=== PATIENT | male | born 1945 | race Caucasian/White ===

== ENCOUNTER → 2017-08-12 | Outpatient (CLI) | payer MEDICARE, OTHER ==
[~2017-08-12] MED LIST: ALLEGRA60 MG PO; ANTIVERT PO; ASPI81EC86 PO; LIPITOR PO; PROTONIX20 MG PO; nasal spray
== END ==
LOC: COL.RAD 10:00
DX: I72.3 Aneurysm of iliac artery (principal); I71.4 Abdominal aortic aneurysm, without rupture

== ENCOUNTER → 2018-09-23 | Outpatient (CLI) | payer MEDICARE, OTHER | LOC: COL.CARD 13:23 | DX: R55 Syncope and collapse (principal) ==

== ENCOUNTER 2018-12-02 08:02 | Outpatient (CLI) | payer MEDICARE, OTHER ==
[~2018-12-02] VITALS: Ht 175.4 cm; Wt 72.0 kg
[~2018-12-02 08:02] MED LIST changes: -ASPI81EC86 PO; +ASPIRIN E.C. 8181 MG PO; +LIPITOR 10MG10 MG PO; -LIPITOR PO; +SINGULAIR 110 MG/TAB PO; +TAMBOCOR50 MG PO
[2018-12-02 08:28] LABS: HEMATOCRIT 47.1 % (42.0-52.0); HEMOGLOBIN 15.9 g/dl (13.5-18.0); MEAN CELL VOLUME 100 fl (80.0-100.0); MEAN CORPUSCULAR HEMOGLOBIN 34 pg (27.0-31.0); MEAN CORPUSCULAR HGB CONC 34 g/dl (33.0-37.0); MEAN PLATELET VOLUME 9.5 fl (7.4-10.4); PLATELET COUNT 184 K/mm3 (130-400); RED BLOOD COUNT 4.71 M/mm3 (4.20-5.60); REDCELL DISTRIBUTION WIDTH-CV 12.4 % (11.5-14.5)
[2018-12-02 08:31] VITALS: BP 114/78; PULSE 55; TEMP 98.7
[2018-12-02 08:35] LABS: INR 0.9 (0.8-3.0); PROTHROMBIN TIME 10.8 SECONDS (9.7-12.8)
[2018-12-02 08:37] LABS: CALCIUM 9.2 mg/dL (8.4-10.2); CREATININE, serum 0.87 (0.66-1.25)
[2018-12-02] MEDS ORDERED: FLONASEALLERGY NS (08:41)
[2018-12-02] MEDS ORDERED: PROTONIX 40MG T40 MG PO (08:42)
[2018-12-02] MEDS ORDERED: ZYRTEC 10MG10 MG PO (08:44)
[2018-12-02] MEDS ORDERED: CEPHALEXIN500 M1 PO (09:41)
[2018-12-02 09:50] VITALS: BP 105/73; PULSE 63
--- NOTE | 2018-12-02 09:50 | NUR ---
NARAYAN and loop recorder completed per lab coordinator. Pt resting well in bed, at bedside.
[2018-12-02 10:05] VITALS: BP 112/69; PULSE 61
[2018-12-02 10:20] VITALS: BP 106/70; PULSE 61
[2018-12-02 10:35] VITALS: BP 105/66; PULSE 65; TEMP 97.4
--- NOTE | 2018-12-02 10:45 | NUR ---
Pt has ambulated, voided and neena PO intake s n/v. PIV removed with catheter intact.
[2018-12-02 10:50] VITALS: BP 130/88; PULSE 63
--- NOTE | 2018-12-02 11:00 | NUR ---
Pt discharged per w/c by nurse with .
== END 2018-12-02 12:47 | disposition home or self-care (01) ==
LOC: COL.CAR 08:02
PROVIDERS: Internal Medicine Cardiovascular Disease
DX: I47.1 Supraventricular tachycardia (principal); I49.3 Ventricular premature depolarization; R55 Syncope and collapse; J30.89 Other allergic rhinitis; Z90.49 Acquired absence of other specified parts of digestive tract; Z79.82 Long term (current) use of aspirin; Z79.51 Long term (current) use of inhaled steroids; Z87.891 Personal history of nicotine dependence; Z82.49 Family history of ischemic heart disease and other diseases of the circulatory system; Z80.1 Family history of malignant neoplasm of trachea, bronchus and lung; I08.3 Combined rheumatic disorders of mitral, aortic and tricuspid valves; Q21.1 Atrial septal defect
CPT/HCPCS: J2704

== ENCOUNTER 2020-10-27 16:57 | Emergency (ER) | payer MEDICARE, OTHER ==
[~2020-10-27] VITALS: Ht 175.4 cm; Wt 77.3 kg
[~2020-10-27 16:57] MED LIST changes: +CEPHALEXIN500 M1 PO; +FLONASEALLERGY NS; +PROTONIX 40MG T40 MG PO; +ZYRTEC 10MG10 MG PO
[2020-10-27 17:11] VITALS: TEMP 98.3
[2020-10-27 17:29] LABS: BASO % 0.5 % (0.0-2.0); EOS # 0.6 (0.0-0.7); EOS % 9.3 % (0-4.0); GRAN % 65.7 % (42.2-75.2); HEMATOCRIT 45.7 % (42.0-52.0); HEMOGLOBIN 15.1 g/dl (13.5-18.0); LYMPH % 15.9 % (20.0-51.0); MEAN CELL VOLUME 99 fl (80.0-100.0); MEAN CORPUSCULAR HEMOGLOBIN 33 pg (27.0-31.0); MEAN CORPUSCULAR HGB CONC 33 g/dl (33.0-37.0); MEAN PLATELET VOLUME 10.3 fl (7.4-10.4); MONO # 0.5 (0.1-0.6); MONO % 8.4 % (1.7-9.3); PLATELET COUNT 172 K/mm3 (130-400); RED BLOOD COUNT 4.62 M/mm3 (4.20-5.60); REDCELL DISTRIBUTION WIDTH-CV 12.4 % (11.5-14.5)
[2020-10-27 17:39] LABS: ALANINE AMINOTRANSFERASE 19 U/L (4-49); ALKALINE PHOSPHATASE 78 U/L (50-136); ANION GAP 5 mmol/L (7-16); AST,SGOT 35 U/L (15-37); BILIRUBIN,TOTAL 0.9 mg/dL (0.0-1.0); BLOOD UREA NITROGEN 17 mg/dL (9-20); CALCIUM 9.1 mg/dL (8.4-10.2); CARBON DIOXIDE 27 mmol/L (22-30); CHLORIDE 106 mmol/L (98-107); CREATININE, serum 0.96 (0.66-1.25); GLUCOSE 94 mg/dL (74-106); POTASSIUM 4.9 mmol/L (3.4-5.0); SODIUM 138 mmol/L (137-145); TOTAL PROTEIN 7.2 gm/dL (6.4-8.2)
[2020-10-27 17:50] LABS: TROPONIN-I < 0.012 ng/mL (0.000-0.035)
[2020-10-27 18:32] VITALS: BP 153/106; PULSE 96
[2020-10-27 18:34] LABS: PROTHROMBIN TIME 11.4 SECONDS (9.7-12.8)
[2020-10-27 18:37] LABS: PARTIAL THROMBOPLASTIN TIME 29.2 SECONDS (26.0-37.0)
== END 2020-10-27 18:32 | disposition home or self-care (01) ==
LOC: COL.ER 16:57
PROVIDERS: Family Medicine
DX: I49.3 Ventricular premature depolarization (principal); K21.9 Gastro-esophageal reflux disease without esophagitis; E78.5 Hyperlipidemia, unspecified; F17.220 Nicotine dependence, chewing tobacco, uncomplicated; Z95.818 Presence of other cardiac implants and grafts; Z79.82 Long term (current) use of aspirin; Z79.899 Other long term (current) drug therapy

== ENCOUNTER 2020-12-21 06:51 | Day surgery (SDC) | payer MEDICARE, OTHER ==
[~2020-12-21] VITALS: Ht 175.3 cm; Wt 73.6 kg
[2020-12-21] VITALS (13 sets, daily range): BP systolic 92–131; BP diastolic 57–98; PULSE 42–60; TEMP 97.1
[2020-12-21 08:23] LABS: HEMATOCRIT 42.1 % (42.0-52.0); HEMOGLOBIN 14.1 g/dl (13.5-18.0); MEAN CELL VOLUME 100 fl (80.0-100.0); MEAN CORPUSCULAR HEMOGLOBIN 34 pg (27.0-31.0); MEAN CORPUSCULAR HGB CONC 34 g/dl (33.0-37.0); MEAN PLATELET VOLUME 10.5 fl (7.4-10.4); PLATELET COUNT 159 K/mm3 (130-400); REDCELL DISTRIBUTION WIDTH-CV 12.2 % (11.5-14.5)
[2020-12-21 08:28] LABS: PROTHROMBIN TIME 11.6 SECONDS (9.7-12.8)
[2020-12-21 08:31] LABS: PARTIAL THROMBOPLASTIN TIME 28.1 SECONDS (26.0-37.0)
[2020-12-21 08:36] LABS: CALCIUM 8.6 mg/dL (8.4-10.2); CREATININE, serum 0.9 (0.66-1.25); POTASSIUM 3.9 mmol/L (3.4-5.0)
[2020-12-21] MEDS ORDERED: TIAZAC180 MG PO (08:52)
--- NOTE | 2020-12-21 18:17 | NUR ---
Started air release at 1210 with 2 ml, 3 ml at 1300.At 1345 release another 3 ml and right radial site had oserved bleeding.Air reinstilled to 12ml total.waited one hour them release air in 2-3 ml incriments every 15 minutes until all air removed from band.no bleeding observed at site.Dressing observed clean,dry,intact upon discharge.Instructions given and pt discharged at 1450.
== END 2020-12-21 18:19 ==
LOC: COL.CAR 06:51
PROVIDERS: Internal Medicine Cardiovascular Disease
DX: I42.8 Other cardiomyopathies (principal); I49.3 Ventricular premature depolarization; I34.0 Nonrheumatic mitral (valve) insufficiency; I47.1 Supraventricular tachycardia; Z95.818 Presence of other cardiac implants and grafts; Z20.822 Contact with and (suspected) exposure to COVID-19
CPT/HCPCS: C1769; J1644; J2250; J3010; Q9967

== ENCOUNTER → 2021-12-03 | Outpatient (CLI) | payer MEDICARE, OTHER ==
[~2021-12-03] MED LIST changes: +ALDACTONE 25MG25 M1 PO; +FARXIGA10 PO; +TIAZAC180 MG PO; +TOPROL XL 25MG25 MG PO
== END ==
LOC: COL.RAD 09:58
DX: I72.3 Aneurysm of iliac artery (principal)

== ENCOUNTER → 2022-07-31 | Outpatient (CLI) | payer MEDICARE, OTHER | LOC: COL.RAD 08:45 | DX: R41.3 Other amnesia (principal) ==